=== PATIENT | male | born 1945 | race Caucasian/White ===

== ENCOUNTER 2018-03-12 12:02 | Emergency (ER) | payer OTHER, SELFPAY ==
--- NOTE | 2018-03-12 14:11 | RAD REPORT ---
EXAM DESCRIPTION: CT - Head Brain Wo Cont - 03/12/2018 1:58 pm CLINICAL HISTORY: Dizziness COMPARISON: None. TECHNIQUE: Computed axial tomography of the head was obtained. IV contrast was not requested. All CT scans are performed using dose optimization technique as appropriate and may include automated exposure control or mA/KV adjustment according to patient size. FINDINGS: An intracranial bleed is not seen . The ventricles are normal in caliber. Mild low-density areas within periventricular, deep and subcort ical white matter likely represent ischemic changes secondary small vessel disease No extra-axial fluid collection is noted. Fluid within the sinuses/ mastoids is not seen. IMPRESSION: No acute intracranial abnormality is seen. If patient's symptoms persist MRI of the bra in would be recommended.
--- NOTE | 2018-03-12 14:42 | RAD REPORT ---
EXAM DESCRIPTION: Kelley Single View03/12/2018 2:32 pm CLINICAL HISTORY: Chest pain COMPARISON: April 2017 FINDINGS: The lungs appear clear of acute infiltrate. The heart is normal size IMPRESSION: No acute abnormalities displayed
[2018-03-12 14:43] LABS: Urine Blood TRACE (NEG); Urine Glucose NEGATIVE (NEG); Urine Protein 1+ (NEG); Urine Specific Gravity >1.030 (1.005-1.030); Urine pH 5.5 (5.0-7.0)
[2018-03-12] MEDS ORDERED: ONDANSETRON 4 MG/2 ML VIAL ONE (14:43)
[2018-03-12 14:44] LABS: Absolute Lymphocytes (CBC) 1.9 K/uL (0.7-4.9); Absolute Monocytes 0.6 K/uL (0.1-1.3); Absolute Neutrophil 10.8 K/uL (1.8-8.0); Basophils % 0.4 % (0-1.3); Eosinophils % 0.9 % (0-4.4); Hematocrit 50.6 % (39.6-49.0); Lymphocytes % 13.9 % (15.3-44.8); MPV 7.9 fL (7.6-11.3); Monocytes % 4.7 % (3.3-12.3)
[2018-03-12 14:45] LABS: Protime INR 1.08
[2018-03-12 15:02] LABS: Albumin 3.7 g/dL (3.4-5.0); Bilirubin Direct 0.1 mg/dL (0-0.2); Bilirubin Total 0.4 mg/dL (0.2-1.0); Magnesium 2.3 mg/dL (1.8-2.4); Protein, Total 8.6 g/dL (6.4-8.2); Troponin (Emerg Dept Use Only) 0.02 ng/mL (0.0-0.045)
--- NOTE | 2018-03-12 16:06 | ER ---
Nurse's Notes [facility] Name: Kathy Gracia Jr Age: 72 yrs Sex: Male : 1945 Arrival Date: 03/12/2018 Time: 12:04 Bed 27 Private MD: Gerber Cevallos Diagnosis: Chronic obstructive pulmonary disease with (acute) exacerbation Presentation: 03/12 12:19 Presenting complaint: Mother states: he s not been feeling good for days, this morning, hj around 1030 am today, he told me he feels week and dizzy and fell on the floor; reports nausea, vomiting reports dizziness and weakness; vomited x3; reports headache;. Transition of care: patient was not received from another setting of care. Onset of symptoms was March 12, 2018. Risk Assessment: Do you want to hurt yourself or someone else? Patient reports no desire to harm self or others. Initial Sepsis Screen: Does the patient meet any 2 criteria? No. Patient's initial sepsis screen is negative. Does the patient have a suspected source of infection? No. Patient's initial sepsis screen is negative. Care prior to arrival: None. 12:19 Method Of Arrival: Ambulatory 12:19 Acuity: NEVAEH 3 hj Triage Assessment: 12:26 General: Appears in no apparent distress. uncomfortable, Behavior is calm, cooperative, hj appropriate for age. Pain: Complains of pain in head. GI: Reports nausea, vomiting. Historical: - Allergies: 12:26 No Known Allergies; hj - Home Meds: 12:26 Coreg 25 mg Oral tab [Active]; levothyroxine 175 mcg tab [Active]; Lasix 40 mg Oral tab hj 1 tab 2 times per day [Active]; pantoprazole 40 mg oral TbEC 1 tab once daily [Active]; glimepiride 2 mg Oral tab 1 tab once daily [Active]; metformin 500 mg Oral tab 1 tab 2 times per day [Active]; aspirin 81 mg Oral TbEC 1 tab once daily [Active]; Xopenex 0.63 mg/3 mL Nebulizer nebu 3 mL every 8 hours [Active]; Albuterol Nebulizer [Active]; Combivent 18-103 mcg/actuation Inhl aero [Active]; - PMHx: 12:26 Hypertension; Hypothyroidism; Diabetes - NIDDM; COPD; hj - PSHx: 12:26 Cholecystectomy; hj - Immunization history:: Adult Immunizations up to date. - Social history:: Smoking status: Patient/guardian denies using tobacco, Patient/guardian denies using alcohol. - Ebola Screening: : Patient negative for fever greater than or equal to 101.5 degrees Fahrenheit, and additional compatible Ebola Virus Disease symptoms Patient denies exposure to infectious person Patient denies travel to an Ebola-affected area in the 21 days before illness onset. Screenin:26 Abuse screen: Denies threats or abuse. Denies injuries from another. Nutritional hj screening: No deficits noted. Tuberculosis screening: No symptoms or risk factors identified. Fall Risk None identified. Assessment: 12:26 GI: Abdomen is non-distended, obese. hj 13:29 General: Appears uncomfortable, obese, well groomed, well developed, well nourished, tl3 Behavior is calm, cooperative, appropriate for age. Pain: Complains of pain in epigastric. Neuro: Level of Consciousness is awake, alert, obeys commands, Oriented to person, place, time, situation, Appropriate for age. Cardiovascular: Heart tones S1 S2 present Patient's skin is warm and dry. 15:28 Reassessment: Patient appears in no apparent distress at this time. No changes from tl3 previously documented assessment. Patient and/or family updated on plan of care and expected duration. Pain level reassessed. Patient is alert, oriented x 3, equal unlabored respirations, skin warm/dry/pink. pt resting quietly in room, no needs at this time. 15:56 Reassessment: pt awaiting discharge, no other needs at this time. tl3 16:36 Reassessment: Patient appears in no apparent distress at this time. No changes from tl3 previously documented assessment. Patient and/or family updated on plan of care and expected duration. Pain level reassessed. Patient is alert, oriented x 3, equal unlabored respirations, skin warm/dry/pink. Vital Signs: 12:27 BP 151 / 85; Pulse 78; Resp 18; Temp 97.7(O); Pulse Ox 93% on R/A; Weight 129.27 kg; hj Height 5 ft. 10 in. (177.80 cm); Pain 5/10; 13:38 BP 124 / 73; Pulse 82; Resp 18; Pulse Ox 96% on 3 lpm NC; tl3 14:30 BP 133 / 71; Pulse 84; Resp 18; Pulse Ox 93% on R/A; tl3 16:36 BP 140 / 84; Pulse 82; Resp 18; Pulse Ox 94% on R/A; tl3 12:27 Body Mass Index 40.89 (129.27 kg, 177.80 cm) hj ED Course: 12:04 Patient arrived in ED. ag5 12:04 Gerber Cevallos DO is Private Physician. ag5 12:24 Triage completed. hj 12:27 Arm band placed on right wrist. hj 12:27 Patient has correct armband on for positive identification. Placed in gown. Bed in low hj position. Call light in reach. Side rails up X 1. 13:11 Jen Watts, ANDRZEJ is Primary Nurse. tl3 13:19 Sandeep Han NP is PHCP. pm1 13:19 Abelardo Rocha MD is Attending Physician. pm1 13:38 No provider procedures requiring assistance completed. tl3 13:59 CT Head Brain wo Cont In Process Unspecified. EDMS 14:10 EKG done, by histotechnologist supervisor. reviewed by Sandeep Han NP. at1 14:17 XRAY Chest (1 view) Sent. tl3 14:25 X-ray completed. Portable x-ray completed in exam room. Patient tolerated procedure sw well. 14:32 XRAY Chest (1 view) In Process Unspecified. EDMS 16:36 IV discontinued, intact, bleeding controlled, No redness/swelling at site. Pressure tl3 dressing applied. Administered Medications: 15:14 Not Given (Patient Refused): Zofran 4 mg IVP once; over 2 minutes tl3 16:33 Drug: predniSONE 60 mg Route: PO; tl3 16:34 Follow up: Response: Medication administered at discharge. tl3 Point of Care Testing: Blood Glucose: 12:27 Blood Glucose: 182 mg/dL; hj 14:30 Blood Glucose: 174 mg/dL; tl3 Ranges: Outcome: 16:05 Discharge ordered by . pm1 16:36 Discharged to home ambulatory. tl3 16:36 Condition: stable 16:36 Discharge instructions given to patient, family, Instructed on discharge instructions, follow up and referral plans. medication usage, Demonstrated understanding of instructions, follow-up care, medications, Prescriptions given X 3. 16:37 Patient left the ED. tl3 Signatures: Dispatcher [employer] EDMS Izabella Pitt, transmissions systems operator EKG Tat1 Lesly Jade Henry RN RN hj Sandeep Han NP RD LAB TECHNICIAN pm1 Jen Watts RN RN tl3 Percy Wu ag5 Corrections: (The following items were deleted from the chart) 12:29 12:27 BP 137 / 84; Pulse 78bpm; Resp 18bpm; Pulse Ox 93% RA; Temp 97.7F Oral; 129.27 hj kg; Height 5 ft. 10 in.; BMI: 40.8; Pain 5/10; hj
--- NOTE | 2018-03-12 16:06 | EDPHYS ---
Physician Documentation [facility] Name: Kathy Gracia Jr Age: 72 yrs Sex: Male : 1945 Arrival Date: 03/12/2018 Time: 12:04 Bed 27 Private MD: Gerber Cevallos ED Physician Abelardo Rocha HPI: 03/12 14:00 This 72 yrs old Male presents to ER via Ambulatory with complaints of pm1 Nausea/Vomiting, General Weakness. 14:00 The patient presents to the emergency department with weakness of the entire body, pm1 generalized weakness, nausea and vomiting. Onset: The symptoms/episode began/occurred 1 week(s) ago. Context: occurred at home. Associated signs and symptoms: Pertinent positives: headache, nausea, vomiting, cough, Pertinent negatives: chills, fever, paresthesias, focal weakness. The patient has not recently seen a physician. Historical: - Allergies: 12:26 No Known Allergies; hj - Home Meds: 12:26 Coreg 25 mg Oral tab [Active]; levothyroxine 175 mcg tab [Active]; Lasix 40 mg Oral tab hj 1 tab 2 times per day [Active]; pantoprazole 40 mg oral TbEC 1 tab once daily [Active]; glimepiride 2 mg Oral tab 1 tab once daily [Active]; metformin 500 mg Oral tab 1 tab 2 times per day [Active]; aspirin 81 mg Oral TbEC 1 tab once daily [Active]; Xopenex 0.63 mg/3 mL Nebulizer nebu 3 mL every 8 hours [Active]; Albuterol Nebulizer [Active]; Combivent 18-103 mcg/actuation Inhl aero [Active]; - PMHx: 12:26 Hypertension; Hypothyroidism; Diabetes - NIDDM; COPD; hj - PSHx: 12:26 Cholecystectomy; hj - Immunization history:: Adult Immunizations up to date. - Social history:: Smoking status: Patient/guardian denies using tobacco, Patient/guardian denies using alcohol. - Ebola Screening: : Patient negative for fever greater than or equal to 101.5 degrees Fahrenheit, and additional compatible Ebola Virus Disease symptoms Patient denies exposure to infectious person Patient denies travel to an Ebola-affected area in the 21 days before illness onset. ROS: 14:00 Constitutional: Negative for fever, chills, and weight loss, Eyes: Negative for injury, pm1 pain, redness, and discharge, ENT: Negative for injury, pain, and discharge, Neck: Negative for injury, pain, and swelling, Cardiovascular: Negative for chest pain, palpitations, and edema. 14:00 Back: Negative for injury and pain, : Negative for injury, bleeding, discharge, and swelling, MS/Extremity: Negative for injury and deformity, Skin: Negative for injury, rash, and discoloration. 14:00 Respiratory: Positive for cough, sputum, Negative for shortness of breath, wheezing. 14:00 Abdomen/GI: Positive for nausea and vomiting, Negative for abdominal pain, diarrhea. 14:00 Neuro: Positive for headache, Generalized weakness, Negative for dizziness, numbness, tingling. Exam: 14:00 Constitutional: This is a well developed, well nourished patient who is awake, alert, pm1 and in no acute distress. Head/Face: Normocephalic, atraumatic. Eyes: Pupils equal round and reactive to light, extra-ocular motions intact. Lids and lashes normal. Conjunctiva and sclera are non-icteric and not injected. Cornea within normal limits. Periorbital areas with no swelling, redness, or edema. ENT: Nares patent. No nasal discharge, no septal abnormalities noted. Tympanic membranes are normal and external auditory canals are clear. Oropharynx with no redness, swelling, or masses, exudates, or evidence of obstruction, uvula midline. Mucous membranes moist. Neck: Trachea midline, no thyromegaly or masses palpated, and no cervical lymphadenopathy. Supple, full range of motion without nuchal rigidity, or vertebral point tenderness. No Meningismus. Chest/axilla: Normal chest wall appearance and motion. Nontender with no deformity. No lesions are appreciated. Cardiovascular: Regular rate and rhythm with a normal S1 and S2. No gallops, murmurs, or rubs. Normal PMI, no JVD. No pulse deficits. Respiratory: Lungs have equal breath sounds bilaterally, clear to auscultation and percussion. No rales, rhonchi or wheezes noted. No increased work of breathing, no retractions or nasal flaring. Abdomen/GI: Soft, non-tender, with normal bowel sounds. No distension or tympany. No guarding or rebound. No evidence of tenderness throughout. Back: No spinal tenderness. No costovertebral tenderness. Full range of motion. Skin: Warm, dry with normal turgor. Normal color with no rashes, no lesions, and no evidence of cellulitis. MS/ Extremity: Pulses equal, no cyanosis. Neurovascular intact. Full, normal range of motion. 14:00 Neuro: Orientation: is normal, Cranial nerves: CN II- XII are normal as tested, Cerebellar function: normal finger to nose testing, heel to tiwari testing is normal, Motor: moves all fours, Sensation: is normal, no obvious gross deficits, Gait: is steady, at a normal pace, without difficulty. Vital Signs: 12:27 BP 151 / 85; Pulse 78; Resp 18; Temp 97.7(O); Pulse Ox 93% on R/A; Weight 129.27 kg; hj Height 5 ft. 10 in. (177.80 cm); Pain 5/10; 13:38 BP 124 / 73; Pulse 82; Resp 18; Pulse Ox 96% on 3 lpm NC; tl3 14:30 BP 133 / 71; Pulse 84; Resp 18; Pulse Ox 93% on R/A; tl3 16:36 BP 140 / 84; Pulse 82; Resp 18; Pulse Ox 94% on R/A; tl3 12:27 Body Mass Index 40.89 (129.27 kg, 177.80 cm) MDM: 13:43 Patient medically screened. pm1 16:02 Data reviewed: vital signs. Data interpreted: Pulse oximetry: on room air is 93 %. pm1 Interpretation: acceptable copd. 16:02 Refusal of service: The patient/guardian displays adequate decision making capability pm1 and despite a detailed discussion of alternatives, benefits, risks, and consequences refuses: Admission to the hospital for further work-up and treatment, repeat troponin. He wants to go home to feed his animals. 16:03 Counseling: I had a detailed discussion with the patient and/or guardian regarding: the pm1 historical points, exam findings, and any diagnostic results supporting the discharge/admit diagnosis, lab results, radiology results, the need for outpatient follow up, to return to the emergency department if symptoms worsen or persist or if there are any questions or concerns that arise at home. 03/12 13:44 Order name: Basic Metabolic Panel; Complete Time: 15:29 pm1 04 13:44 Order name: CBC with Diff; Complete Time: 15:29 pm03/12 13:44 Order name: LFT's; Complete Time: 15:29 pm03/12 13:44 Order name: Magnesium; Complete Time: 15:29 pm03/12 13:44 Order name: NT PRO-BNP; Complete Time: 15:29 pm03/12 13:44 Order name: PT-INR; Complete Time: 15:29 pm03/12 13:44 Order name: Troponin (emerg Dept Use Only); Complete Time: 15:29 pm03/12 13:44 Order name: XRAY Chest (1 view); Complete Time: 15:29 pm03/12 13:44 Order name: EKG; Complete Time: 13:45 pm03/12 13:44 Order name: Cardiac monitoring; Complete Time: 14:17 pm1 03/12 13:44 Order name: CT Head Brain wo Cont; Complete Time: 15:29 pm03/12 14:33 Order name: Urine Dipstick--Ancillary (enter results); Complete Time: 15:29 ag 03/12 13:44 Order name: EKG - Nurse/Tech; Complete Time: 14:17 pm1 03/12 13:44 Order name: IV Saline Lock; Complete Time: 15:15 pm03/12 13:44 Order name: Labs collected and sent; Complete Time: 15:15 pm03/12 13:44 Order name: O2 Per Protocol; Complete Time: 14:17 pm1 03/12 13:44 Order name: O2 Sat Monitoring; Complete Time: 14:17 pm1 Administered Medications: 15:14 Not Given (Patient Refused): Zofran 4 mg IVP once; over 2 minutes tl3 16:33 Drug: predniSONE 60 mg Route: PO; tl3 16:34 Follow up: Response: Medication administered at discharge. tl3 Point of Care Testing: Blood Glucose: 12:27 Blood Glucose: 182 mg/dL; hj 14:30 Blood Glucose: 174 mg/dL; tl3 Ranges: Critical Glucose Levels:Adult <50 mg/dl or >400 mg/dl <40 mg/dl or >180 mg/dl Disposition: 03/12/18 16:05 Discharged to Home. Impression: Chronic obstructive pulmonary disease with (acute) exacerbation. - Condition is Stable. - Discharge Instructions: Chronic Obstructive Pulmonary Disease. - Prescriptions for Zofran 4 mg Oral Tablet - take 1 tablet by ORAL route every 12 hours As needed; 20 tablet. Zithromax Z- Jareth 250 mg Oral Tablet - take 1 tablet by ORAL route as directed for 5 days Day 1 - take two (2) tablets one time. Day 2, 3, 4 , 5 take one (1) tablet once daily.; 6 tablet. Prednisone 20 mg Oral Tablet - take 3 tablet by ORAL route once daily for 5 days; 15 tablet. - Medication Reconciliation Form, Thank You Letter, Antibiotic Education, Prescription Opioid Use form. - Follow up: Emergency Department; When: As needed; Reason: Worsening of condition. Follow up: Private Physician; When: 2 - 3 days; Reason: Recheck today's complaints, Continuance of care, Re-evaluation by your physician. - Problem is new. - Symptoms have improved. Addendum: 03/25/2018 07:31 Co-signature as Attending Physician, Abelardo Rocha MD I agree with the assessment and k dr plan of care. Signatures: Dispatcher [employer] EDFL Abelardo Rocha MD MD [facility] Donald Armstrong RN RN hj Sandeep Han NP [employer] EMBOSSING PRESS OPERATOR pm1 Jen Watts RN RN tl3 Corrections: (The following items were deleted from the chart) 03/12 16:37 16:05 03/12/2018 16:05 Discharged to Home. Impression: Chronic obstructive pulmonary tl3 disease with (acute) exacerbation. Condition is Stable. Forms are Medication Reconciliation Form, Thank You Letter, Antibiotic Education, Prescription Opioid Use. Follow up: Emergency Department; When: As needed; Reason: Worsening of condition. Follow up: Private Physician; When: 2 - 3 days; Reason: Recheck today's complaints, Continuance of care, Re-evaluation by your physician. Problem is new. Symptoms have improved. pm1
[2018-03-12] MEDS ORDERED: predniSONE 20 MG TAB ONE (16:29)
--- NOTE | 2018-03-13 13:57 | EKG ---
Test Date: 2018-03-12 Test Time: 14:03:33 Gristmill Operator: LIBIA MEASUREMENT RESULTS: Intervals: Rate: 79 MN: 182 QRSD: 82 QT: 390 QTc: 447 [place]: P: 48 MN: 182 QRS: 27 T: 70 INTERPRETIVE STATEMENTS: Normal sinus rhythm Normal ECG Compared to ECG 04/12/2017 18:03:47 No significant changes Electronically Signed On 03-13-18 13:54:04 VET ASSISTANT by Shahbaz Snell
== END 2018-03-12 16:37 | disposition home or self-care (01) ==
LOC: ER 12:02
DX: J44.1 Chronic obstructive pulmonary disease with (acute) exacerbation (principal); I10 Essential (primary) hypertension; E03.9 Hypothyroidism, unspecified; E11.9 Type 2 diabetes mellitus without complications; Z79.82 Long term (current) use of aspirin
CPT/HCPCS: 36415; 70450; 71045; 80048; 80076; 81003; 82962; 83735; 83880; 84484; 85025; 85610; 93005; 99284; J2405; J7512